=== PATIENT | male | born 1980 | race Caucasian/White ===

== ENCOUNTER 2017-09-08 17:41 | Emergency (ER) | payer SELFPAY, MEDICAID | END 2017-09-08 21:18 | disposition home or self-care (01) | LOC: FTE 17:41 | DX: R20.2 Paresthesia of skin (principal) | CPT/HCPCS: 82962; 99282 ==

== ENCOUNTER 2017-12-26 20:09 | Emergency (ER) | payer OTHER, MEDICAID ==
[2017-12-27] MEDS: HYDROCODONE/APAP (10/325) TAB PO (00:19)
== END 2017-12-27 03:20 | disposition home or self-care (01) ==
LOC: FTE 20:09
DX: G57.62 Lesion of plantar nerve, left lower limb (principal); R40.2412 Glasgow coma scale score 13-15, at arrival to emergency department
CPT/HCPCS: 73630; 73630-LT; 99283-25

== ENCOUNTER 2018-11-29 20:10 | Emergency (ER) | payer OTHER ==
[2018-11-29 21:25] LABS: ADD UMIC YES; UR ASCORBIC ACID NEGATIVE (NEGATIVE); UR BILIRUBIN (Dip) NEGATIVE (NEGATIVE); UR BLOOD (Dip) 1+ mg/dL (NEGATIVE); UR CLARITY CLEAR (CLEAR); UR COLOR YELLOW (YELLOW); UR GLUCOSE (Dip) NEGATIVE (NEGATIVE); UR KETONES (Dip) NEGATIVE (NEGATIVE); UR LEUKOCYTE ESTERASE (Dip) NEGATIVE Leu/ul (NEGATIVE); UR MUCUS FEW /HPF (NONE SEEN); UR NITRITE (Dip) NEGATIVE (NEGATIVE); UR RBC 1 /HPF (0-5); UR TOTAL PROTEIN (Dip) NEGATIVE (NEGATIVE); UR UROBILINOGEN (Dip) NEGATIVE (NEGATIVE); UR WBC 1 /HPF (0-5)
== END 2018-11-29 22:05 | disposition home or self-care (01) ==
LOC: FTE 20:10
DX: K11.7 Disturbances of salivary secretion (principal)
CPT/HCPCS: 81001; 99283